=== PATIENT | female | born 1990 | race Caucasian/White ===

== ENCOUNTER 2018-02-15 05:59 | Day surgery (SDC) | payer BC ==
[2018-02-15 06:51] LABS: HEMATOCRIT 36.3 % (36.0-47.0); MEAN CORPUSCULAR HEMOGLOBIN 30.9 pg (27.0-33.0); MEAN CORPUSCULAR HGB CONC 35.8 g/dl (32.0-36.5); MEAN CORPUSCULAR VOLUME 86.2 fl (80.0-96.0); PLATELET COUNT, AUTOMATED 227 10^3/uL (150-450); RED BLOOD COUNT 4.21 10^6/uL (4.00-5.40); RED CELL DISTRIBUTION WIDTH 12.3 % (11.5-14.5); WHITE BLOOD COUNT 5.8 10^3/uL (4.0-10.0)
[2018-02-15] MEDS: LR 1,000 ML IV (06:54)
[2018-02-15 06:58] LABS: CONTROL LINE HCG INT CTR LINE PRESENT; HCG, SERUM QUALITATIVE NEGATIVE (NEGATIVE)
[2018-02-15] MEDS ORDERED: ONDANSETRON 4MG/2ML VIAL (J2405) As Ordered (07:12)
[2018-02-15] MEDS ORDERED: MIDAZOLAM INJ 2 MG/2 ML VIAL (J2250) As Ordered (07:12)
[2018-02-15] MEDS ORDERED: METOCLOPRAMIDE INJ 10MG/2ML VIAL (J2765) As Ordered (07:12)
[2018-02-15] MEDS ORDERED: LIDOCAINE 2% INJ 100 MG/5 ML SDV (FOR ANES.) As Ordered (07:12)
[2018-02-15] MEDS ORDERED: fentaNYL 100 MCG/2 ML INJECTION (J3010) As Ordered (07:12)
[2018-02-15] MEDS ORDERED: PROPOFOL 200 MG/20 ML VIAL As Ordered (07:12)
[2018-02-15] MEDS ORDERED: ROCURONIUM BROMIDE 50 MG/5 ML VIAL As Ordered (07:45)
[2018-02-15] MEDS ORDERED: KETOROLAC 60 MG/2 ML VIAL (J1885) As Ordered (07:45)
[2018-02-15] MEDS ORDERED: dexameTHASONE 4 MG/ML 1ML VIAL (J1100) As Ordered (07:45)
[2018-02-15] MEDS: BUPIVACAINE HCL 0.25% 30 ML VIAL As Ordered (07:55)
[2018-02-15] MEDS: METHYLENE BLUE 0.5% (5MG/ML) 10 ML AMP (PROVAYBLUE)(Q9968 PER 1MG) As Ordered (08:32)
[2018-02-15] MEDS ORDERED: HYDROmorphone HCL 2 MG/ML 1ML VIAL (J1170) As Ordered (08:59)
[2018-02-15] MEDS ORDERED: ONDANSETRON 4MG/2ML VIAL (J2405) IV (09:45)
[2018-02-15] MEDS ORDERED: LR 1,000 ML IV ×2 (09:45)
[2018-02-15] MEDS ORDERED: fentaNYL 100 MCG/2 ML INJECTION (J3010) IV (09:45)
[2018-02-15] MEDS ORDERED: HYDROMORPHONE HCL 0.5 MG/ 0.5 ML SYRINGE (J1170 PER 1) IV (09:45)
[2018-02-15] MEDS ORDERED: PERCOCET 5MG/325MG TAB PO (09:45)
== END 2018-02-15 11:05 | disposition home or self-care (01) ==
LOC: M SDC 05:59
DX: N97.1 Female infertility of tubal origin (principal); N83.8 Other noninflammatory disorders of ovary, fallopian tube and broad ligament; R00.8 Other abnormalities of heart beat; K21.9 Gastro-esophageal reflux disease without esophagitis; R51 Headache
CPT/HCPCS: 49321

== ENCOUNTER → 2018-10-21 | Outpatient (REF) | payer BC ==
[~2018-10-21] MED LIST: CALCTAB7 PO; PREN27TA3 PO; VITA100067 PO
== END ==
LOC: M LAB REF 17:18
PROVIDERS: ATTEND Family Medicine
DX: R30.0 Dysuria (principal)

== ENCOUNTER → 2019-07-05 | Outpatient (REF) | payer BC ==
[2019-07-05 15:06] LABS: AMORPHOUS SEDIMENT SMALL (NEGATIVE); APPEARANCE, URINE HAZY (CLEAR); BACTERIA, URINE AUTO 2+ (NEGATIVE); BILIRUBIN, URINE AUTO NEGATIVE (NEGATIVE); BLOOD, URINE BLOOD 3+ (NEGATIVE); COLOR, URINE YELLOW (YELLOW); GLUCOSE, URINE (UA) AUTO NEGATIVE (NEGATIVE); KETONE, URINE AUTO NEGATIVE (NEGATIVE); LEUKOCYTE ESTERASE, URINE AUTO 3+ (NEGATIVE); MUCUS, URINE SMALL (NEGATIVE); NITRITE, URINE AUTO POSITIVE (NEGATIVE); PROTEIN, URINE AUTO NEGATIVE (NEGATIVE); RBC, URINE AUTO 81 /HPF (0-3); SQUAMOUS EPITHELIAL CELL UR AU 0 /HPF (0-6); UROBILINOGEN, URINE AUTO 0.2 mg/dL (0.0-2.0); WBC, URINE AUTO 153 /HPF (0-3)
== END ==
LOC: M LAB REF 09:14
PROVIDERS: ATTEND Physician Assistant Medical
DX: N39.0 Urinary tract infection, site not specified (principal)

== ENCOUNTER → 2019-10-09 | Outpatient (REF) | payer BC | LOC: M LAB REF 18:19 | PROVIDERS: ATTEND Physician Assistant | DX: R30.0 Dysuria (principal) ==

== ENCOUNTER → 2021-04-22 | Outpatient (REF) | payer BC ==
[~2021-04-22] MED LIST changes: +CALC-211 PO; -CALCTAB7 PO
== END ==
LOC: M PLALAB 09:51
PROVIDERS: ATTEND Obstetrics & Gynecology
DX: Z34.91 Encounter for supervision of normal pregnancy, unspecified, first trimester (principal); Z3A.10 10 weeks gestation of pregnancy; Z53.9 Procedure and treatment not carried out, unspecified reason

== ENCOUNTER → 2021-04-22 | Outpatient (CLI) | payer BC ==
[2021-04-22 13:29] LABS: HEMOGLOBIN 12.4 g/dl (12.0-15.5); MEAN CORPUSCULAR HEMOGLOBIN 30.5 pg (27.0-33.0); MEAN CORPUSCULAR HGB CONC 34.4 g/dl (32.0-36.5); MEAN CORPUSCULAR VOLUME 88.5 fl (80.0-96.0); PLATELET COUNT, AUTOMATED 242 10^3/uL (150-450); RED BLOOD COUNT 4.07 10^6/uL (4.00-5.40); WHITE BLOOD COUNT 6.4 10^3/uL (4.0-10.0)
[2021-04-22 13:53] LABS: FREE T4 1.15 NG/DL (0.76-1.46); GLUCOSE CHALLENGE TEST 1 HOUR 72 MG/DL (LESS THAN 140); THYROID STIMULATING HORMONE 0.675 uIU/ML (0.358-3.740)
[2021-04-22 13:57] LABS: HEMOGLOBIN A1c 5.4 %
[2021-04-22 14:36] LABS: HEPATITIS C VIRUS ABY INDEX 0.1 INDEX (<0.8); HIV 1&2 SCREEN CENTAUR NEGATIVE (NEGATIVE)
[2021-04-22 14:49] LABS: GC DNA AMPLIFICATION NEGATIVE (NEGATIVE)
== END ==
LOC: M PLALAB 10:53
PROVIDERS: ATTEND Obstetrics & Gynecology
DX: Z34.81 Encounter for supervision of other normal pregnancy, first trimester (principal); Z3A.10 10 weeks gestation of pregnancy

== ENCOUNTER → 2021-05-02 | Outpatient (CLI) | payer BC ==
--- NOTE | 2021-05-02 16:31 | REP ---
INDICATION: SPOTTING AFFECTING COMPARISON: None. TECHNIQUE: Transabdominal and transvaginal 1st trimester obstetrical ultrasound with color Doppler evaluation. FINDINGS: Single live early intrauterine is appreciated. [place]-rump length of 6.6 cm corresponds to 12 weeks 6 days gestational age with estimated date of delivery 11/08/2021. heart rate equals 161 beats per minute. Posterior grade 0 placenta with evidence for placenta previa likely to resolve as progresses. Cervix measures approximately 3.6 cm in length and appears closed. Maternal ovaries are normal. IMPRESSION: Single live early intrauterine at 12 weeks 6 days gestational age. Complete anatomical assessment should be performed and 19-20 weeks. Placenta previa likely due to early . <Electronically signed by Ternece Hernandez > 05/02/21 [id number]
== END ==
LOC: M WHC 15:17
PROVIDERS: ATTEND Advanced Practice Midwife
DX: O26.851 Spotting complicating pregnancy, first trimester (principal); Z3A.12 12 weeks gestation of pregnancy

== ENCOUNTER → 2021-07-01 | Outpatient (CLI) | payer BC ==
--- NOTE | 2021-07-03 06:50 | REP ---
INDICATION: ANATOMY COMPARISON: 05/02/2021 TECHNIQUE: Transabdominal obstetrical ultrasound with color Doppler evaluation. FINDINGS: Examination demonstrates a single live intrauterine in variable presentation. motion is identified by technologist. Placenta is noted anterior and grade 1 without evidence for placenta previa or abruption. Amniotic fluid volume is normal. Cervix measures 5.2 cm in length and appears closed.. Selected gestational age: 20 weeks 5 days with REN 11/13/2021. Gestational age by current measurements 21 weeks 3 days with REN is 11/08/2021. FHR equals 143 beats per minute. BPD: 5.2 cm at 21 weeks 5 days HC: 19.3 cm at 21 weeks 4 days AC: 16.1 cm at 21 weeks 2 days FL: 3.6 cm at 21 weeks 2 days HL: 3.4 cm at 21 weeks 4 days HC/AC: 1.19 Estimated weight 414 grams (77thpercentile). Anatomical assessment demonstrates normal structures including cranium, choroid plexus, cavum, cerebellum/posterior fossa, lungs, four-chamber heart, diaphragm, stomach, cord insertion/three-vessel cord, kidneys/bladder, and extremities. Limited evaluation of the facial features, facial profile, cardiac ventricular outflow tracts and spine due to positioning. IMPRESSION: Single live intrauterine in variable presentation demonstrating appropriate estimated weight. Anatomical limitations as noted above may warrant follow-up. <Electronically signed by Terence Hernandez > 07/03/21 [id number]
== END ==
LOC: M WHC 08:14
PROVIDERS: ATTEND Specialist
DX: Z34.02 Encounter for supervision of normal first pregnancy, second trimester (principal); Z3A.21 21 weeks gestation of pregnancy

== ENCOUNTER → 2021-08-08 | Outpatient (CLI) | payer BC ==
[~2021-08-08] MED LIST changes: +LEVO25TA5 PO
== END ==
LOC: M WHC 07:03
PROVIDERS: ATTEND Obstetrics & Gynecology
DX: O09.812 Supervision of pregnancy resulting from assisted reproductive technology, second trimester (principal); Z3A.27 27 weeks gestation of pregnancy

== ENCOUNTER → 2021-08-19 | Outpatient (CLI) | payer BC ==
[~2021-08-19] MED LIST changes: -LEVO25TA5 PO
[2021-08-19 10:48] LABS: HEMATOCRIT 34.1 % (36.0-47.0); HEMOGLOBIN 11.5 g/dl (12.0-15.5); MEAN CORPUSCULAR HEMOGLOBIN 30.4 pg (27.0-33.0); MEAN CORPUSCULAR HGB CONC 33.7 g/dl (32.0-36.5); MEAN CORPUSCULAR VOLUME 90.2 fl (80.0-96.0); PLATELET COUNT, AUTOMATED 229 10^3/uL (150-450); RED BLOOD COUNT 3.78 10^6/uL (4.00-5.40); WHITE BLOOD COUNT 8.4 10^3/uL (4.0-10.0)
== END ==
LOC: M PLALAB 07:34
PROVIDERS: ATTEND Obstetrics & Gynecology
DX: O09.812 Supervision of pregnancy resulting from assisted reproductive technology, second trimester (principal); Z3A.00 Weeks of gestation of pregnancy not specified

== ENCOUNTER → 2021-08-25 | Outpatient (CLI) | payer BC | LOC: M LAB 07:10 | PROVIDERS: ATTEND Obstetrics & Gynecology | DX: R73.09 Other abnormal glucose (principal) ==

== ENCOUNTER → 2021-10-17 | Outpatient (REF) | payer BC | LOC: M SFHCWAGY 12:57 | PROVIDERS: ATTEND Obstetrics & Gynecology | DX: Z34.93 Encounter for supervision of normal pregnancy, unspecified, third trimester (principal); Z3A.36 36 weeks gestation of pregnancy ==

== ENCOUNTER → 2021-10-17 | Outpatient (REF) | payer BC | LOC: M PLALAB 10:05 | PROVIDERS: ATTEND Obstetrics & Gynecology | DX: Z34.93 Encounter for supervision of normal pregnancy, unspecified, third trimester (principal); Z3A.36 36 weeks gestation of pregnancy; Z53.9 Procedure and treatment not carried out, unspecified reason ==

== ENCOUNTER → 2021-10-24 | Outpatient (CLI) | payer BC | LOC: M WHC 10:22 | PROVIDERS: ATTEND Advanced Practice Midwife | DX: O24.410 Gestational diabetes mellitus in pregnancy, diet controlled (principal); Z3A.37 37 weeks gestation of pregnancy ==

== ENCOUNTER 2021-11-06 07:57 | Inpatient (IN) | payer BC ==
[2021-11-06] VITALS (11 sets, daily range): BP systolic 117–140; BP diastolic 62–82
[~2021-11-06] VITALS: Ht 154.9 cm; Wt 85.2 kg
[2021-11-06] MEDS ORDERED: LACTATED RINGER'S 1000 ML IV STA (10:19)
[2021-11-06] MEDS ORDERED: LIDOCAINE 1% MDV 20ML VIAL INFIL PRN (10:20)
[2021-11-06] MEDS ORDERED: OXYTOCIN DRIP 30 UNITS in IV 1 EA IV PRN (10:20)
[2021-11-06] MEDS ORDERED: TRANEXAMIC ACID INJection 1,000 MG in NS 100 ML IV PRN (10:20)
[2021-11-06] MEDS ORDERED: METHYLERGONOVINE MALEATE 0.2 MG/ML VIAL (J2210) IM PRN (10:20)
[2021-11-06] MEDS ORDERED: CARBOPROST TROMETHAMINE 250 MCG/ML AMP IM PRN (10:20)
[2021-11-06 10:50] LABS: HEMATOCRIT 34.8 % (36.0-47.0); HEMOGLOBIN 12.3 g/dl (12.0-15.5); MEAN CORPUSCULAR HEMOGLOBIN 30.8 pg (27.0-33.0); MEAN CORPUSCULAR HGB CONC 35.3 g/dl (32.0-36.5); PLATELET COUNT, AUTOMATED 225 10^3/uL (150-450); WHITE BLOOD COUNT 8.4 10^3/uL (4.0-10.0)
[2021-11-06] MEDS: miSOPROStol 50MCG 1/2 TABLET SL SCH ×2 (10:50→14:56)
[2021-11-06] MEDS ORDERED: LEVO25TA5 PO (15:18)
[2021-11-06] MEDS ORDERED: HOME MED LIST COMPLETE! XX SCH (15:20)
[2021-11-06] MEDS ORDERED: OXYTOCIN DRIP 30 UNITS in IV 1 EA IV SCH (20:05)
[2021-11-06] MEDS: LR 1,000 ML IV SCH (20:24)
[2021-11-07] VITALS (56 sets, daily range): BP systolic 112–150; BP diastolic 57–104
[2021-11-07] MEDS: LR 1,000 ML IV SCH ×2 (02:16→07:30)
[2021-11-07] MEDS ORDERED: FENTANYL 2MCG/ML ROPIVACAINE 0.2% IN 0.9% NACL 100ML IVBAG As Ordered ONE (07:19)
[2021-11-07] MEDS ORDERED: EPIDURAL COMMENT XX SCH (07:23)
[2021-11-07] MEDS ORDERED: diphenhydrAMINE 50MG/ML VIAL (J1200) IV PRN (07:23)
[2021-11-07] MEDS ORDERED: ePHEDrine SULFATE 25 MG/5 ML(5MG/ML) SYRINGE IV PRN (07:23)
[2021-11-07] MEDS ORDERED: NALOXONE INJ 0.4MG/1ML VIAL (J2310 PER 1MG) IV PRN (07:23)
[2021-11-07] MEDS ORDERED: EPIDURAL/PCA KEYS XX PRN (07:23)
[2021-11-07] MEDS ORDERED: LACTATED RINGER'S 1000 ML IV PRN (07:23)
[2021-11-07] MEDS ORDERED: FENTANYL/ROPIVACAINE/NACL BAG 100 ML EPIDURAL SCH (07:23)
[2021-11-07] MEDS ORDERED: ONDANSETRON 4MG/2ML VIAL IV PRN (07:23)
[2021-11-07] MEDS ORDERED: REFRIGERATOR IV KEYS XX PRN (07:23)
[2021-11-07] MEDS ORDERED: ANUSOL HC CREAM 30GM TOP PRN (13:10)
[2021-11-07] MEDS ORDERED: DIBUCAINE 1% OINTMENT 30GM TOP PRN (13:10)
[2021-11-07] MEDS ORDERED: METHYLERGONOVINE MALEATE 0.2 MG TAB PO PRN (13:10)
[2021-11-07] MEDS ORDERED: ACETAMINOPHEN TAB 650MG DOSE (2X325MG) PO PRN (13:10)
[2021-11-07] MEDS ORDERED: RHOGAM 300 MCG (1500 IU) INJ (J2790) IM SCH (13:10)
[2021-11-07] MEDS ORDERED: MEASLES,MUMPS,RUBELLA VACCINE INJ (MMR-II) (90707) SC SCH (13:10)
[2021-11-07] MEDS ORDERED: DOCUSATE SODIUM 100MG CAPSULE PO PRN (13:10)
[2021-11-07] MEDS ORDERED: MOM 30ML SUSPENSION UDC PO PRN (13:10)
[2021-11-07] MEDS ORDERED: IBUPROFEN 800 MG TAB PO PRN (13:10)
[2021-11-07] MEDS: ACETAMINOPHEN 500 MG TAB PO PRN (20:37)
[2021-11-08 06:00] VITALS: BP 125/80
[2021-11-08] MEDS: IBUPROFEN 600MG TAB PO PRN (08:05)
[2021-11-08] MEDS: PRENATAL VITAMINS CHEWABLE TABLET PO SCH (08:05)
[2021-11-08] MEDS ORDERED: medroxyPROGESTERone ACET IM SUSP 150 MG/ML VIAL (J1050) IM ONE (10:10)
[2021-11-08 18:00] VITALS: BP 136/84
[2021-11-08] MEDS: ACETAMINOPHEN 500 MG TAB PO PRN (21:51)
[2021-11-08 22:13] VITALS: BP 139/79
[2021-11-09 02:42] VITALS: BP 130/79
[2021-11-09 05:28] VITALS: BP 118/64
[2021-11-09] MEDS: PRENATAL VITAMINS CHEWABLE TABLET PO SCH (08:14)
[2021-11-09] MEDS: IBUPROFEN 600MG TAB PO PRN (08:14)
[2021-11-09] MEDS ORDERED: medroxyPROGESTERone ACET IM SUSP 150 MG/ML VIAL (J1050) IM ONE (09:00)
== END 2021-11-09 12:40 | disposition home or self-care (01) | DRG 560 ==
LOC: M LDI 07:57 → M OBS 11-07 14:50
PROVIDERS: ADMIT Obstetrics & Gynecology; ATTEND Obstetrics & Gynecology
PROC: 3E033VJ Introduction of Other Hormone into Peripheral Vein, Percutaneous Approach (ICD-10-PCS; 2021-11-06)
PROC: 3E0DXGC Introduction of Other Therapeutic Substance into Mouth and Pharynx, External Approach (ICD-10-PCS; 2021-11-06)
PROC: 10E0XZZ Delivery of Products of Conception, External Approach (ICD-10-PCS; principal; 2021-11-07)
PROC: 0HQ9XZZ Repair Perineum Skin, External Approach (ICD-10-PCS; 2021-11-07)
DX: O24.420 Gestational diabetes mellitus in childbirth, diet controlled (principal); E03.9 Hypothyroidism, unspecified; Z37.0 Single live birth; Z3A.39 39 weeks gestation of pregnancy; O99.284 Endocrine, nutritional and metabolic diseases complicating childbirth; O09.819 Supervision of pregnancy resulting from assisted reproductive technology, unspecified trimester; O70.0 First degree perineal laceration during delivery

== ENCOUNTER → 2022-04-26 | Outpatient (CLI) | payer BC ==
[~2022-04-26] MED LIST changes: +LEVO25TA5 PO
== END ==
LOC: M PLALAB 12:13
PROVIDERS: ATTEND Advanced Practice Midwife
DX: N91.2 Amenorrhea, unspecified (principal)

== ENCOUNTER → 2022-05-25 | Outpatient (REF) | payer BC | LOC: M PLALAB 11:55 | PROVIDERS: ATTEND Advanced Practice Midwife | DX: Z12.4 Encounter for screening for malignant neoplasm of cervix (principal) | CPT/HCPCS: 87624; G0123 ==

== ENCOUNTER → 2022-07-21 | Outpatient (CLI) | payer BC | LOC: M PLARAD 08:26 | PROVIDERS: ATTEND Family Medicine | DX: G43.109 Migraine with aura, not intractable, without status migrainosus (principal) ==

== ENCOUNTER → 2023-03-15 | Outpatient (CLI) | payer BC ==
[2023-03-15 11:41] LABS: HEMOGLOBIN A1c 4.9 % (4.0-6.0)
== END ==
LOC: M PLALAB 08:04
PROVIDERS: ATTEND Advanced Practice Midwife
DX: Z86.32 Personal history of gestational diabetes (principal)

== ENCOUNTER → 2023-03-15 | Outpatient (CLI) | payer BC ==
[2023-03-15 10:49] LABS: BASO % 0.5 % (0.0-1.0); EOS # 0.1 10^3/uL (0.0-0.5); HEMATOCRIT 41.4 % (36.0-47.0); HEMOGLOBIN 14.1 g/dl (12.0-15.5); LYMPH # 1.4 10^3/uL (1.5-5.0); LYMPH % 21.1 % (24.0-44.0); MEAN CORPUSCULAR HEMOGLOBIN 31.3 pg (27.0-33.0); MEAN CORPUSCULAR HGB CONC 34.1 g/dl (32.0-36.5); MEAN CORPUSCULAR VOLUME 91.8 fl (80.0-96.0); MONO # 0.5 10^3/uL (0.0-0.8); MONO % 7.2 % (2.0-8.0); NEUTROPHILS # 4.5 10^3/uL (1.5-8.5); NEUTROPHILS % 68.9 % (36.0-66.0); PLATELET COUNT, AUTOMATED 239 10^3/uL (150-450); RED BLOOD COUNT 4.51 10^6/uL (4.00-5.40); WHITE BLOOD COUNT 6.5 10^3/uL (4.0-10.0)
[2023-03-15 10:57] LABS: ALBUMIN 3.8 G/DL (3.2-5.2); ALKALINE PHOSPHATASE 74 U/L (46-116); ALT/SGPT 20 U/L (7.0-40); AST/SGOT 8 U/L (<34); BILIRUBIN,TOTAL 0.6 MG/DL (0.3-1.2); BLOOD UREA NITROGEN 15 MG/DL (9-23); CALCIUM LEVEL 9.2 MG/DL (8.5-10.1); CARBON DIOXIDE LEVEL 28 MMOL/L (20-31); CHLORIDE LEVEL 104 MMOL/L (98-107); CREATININE FOR GFR 0.66 MG/DL (0.55-1.30); GLOMERULAR FILTRATION RATE > 60.0 (>60); GLUCOSE, FASTING 110 MG/DL (60-100); POTASSIUM SERUM 4.1 MMOL/L (3.5-5.1); SODIUM LEVEL 138 MMOL/L (136-145); TOTAL PROTEIN 6.3 G/DL (5.7-8.2)
[2023-03-15 10:58] LABS: FREE T4 0.99 NG/DL (0.89-1.76); THYROID STIMULATING HORMONE 1.654 uIU/ML (0.55-4.78); TOTAL 25(OH) VITAMIN D 27.8 NG/ML (20.0-100.0)
== END ==
LOC: M PLALAB 08:00
PROVIDERS: ATTEND Family Medicine
DX: Z00.00 Encounter for general adult medical examination without abnormal findings (principal); Z13.29 Encounter for screening for other suspected endocrine disorder; Z13.0 Encounter for screening for diseases of the blood and blood-forming organs and certain disorders involving the immune mechanism; E55.9 Vitamin D deficiency, unspecified

== ENCOUNTER → 2023-05-01 | Outpatient (CLI) | payer BC | LOC: M PLALAB 10:02 | PROVIDERS: ATTEND Advanced Practice Midwife | DX: Z84.81 Family history of carrier of genetic disease (principal) ==

== ENCOUNTER → 2023-08-06 | Outpatient (CLI) | payer BC | LOC: M LAB 09:37 → M RAD 09:37 | PROVIDERS: ATTEND Physician Assistant Medical | DX: Z53.9 Procedure and treatment not carried out, unspecified reason (principal) ==

== ENCOUNTER → 2023-08-06 | Outpatient (CLI) | payer BC ==
[~2023-08-06] MED LIST changes: +GLUCAGON INJ 1MG VIAL As Ordered ONE; +ISOVUE-370 76% 100ML VIAL As Ordered ONE; +NEULUMEX 0.1% SUSPENSION 450ML BOTTLE (FORMERLY VOLUMEN) As Ordered ONE
== END ==
LOC: M RAD 09:28
PROVIDERS: ATTEND Physician Assistant Medical
DX: Z15.09 Genetic susceptibility to other malignant neoplasm (principal)
CPT/HCPCS: 74177; J1610; Q9967

== ENCOUNTER → 2023-09-12 | Outpatient (REF) | payer BC ==
[~2023-09-12] MED LIST changes: -GLUCAGON INJ 1MG VIAL As Ordered ONE; -ISOVUE-370 76% 100ML VIAL As Ordered ONE; -NEULUMEX 0.1% SUSPENSION 450ML BOTTLE (FORMERLY VOLUMEN) As Ordered ONE; +VITA100093 PO
[2023-09-12 15:50] LABS: APPEARANCE, URINE CLEAR (CLEAR); BACTERIA, URINE AUTO NEGATIVE (NEGATIVE); BILIRUBIN, URINE AUTO NEGATIVE (NEGATIVE); BLOOD, URINE BLOOD NEGATIVE (NEGATIVE); COLOR, URINE YELLOW (YELLOW); GLUCOSE, URINE (UA) AUTO NEGATIVE (NEGATIVE); KETONE, URINE AUTO TRACE mg/dL (NEGATIVE); LEUKOCYTE ESTERASE, URINE AUTO NEGATIVE (NEGATIVE); NITRITE, URINE AUTO NEGATIVE (NEGATIVE); PROTEIN, URINE AUTO NEGATIVE (NEGATIVE); RBC, URINE AUTO 0 /HPF (0-3); SPECIFIC GRAVITY URINE AUTO 1.014 (1.002-1.035); SQUAMOUS EPITHELIAL CELL UR AU 1 /HPF (0-6); UROBILINOGEN, URINE AUTO 0.2 mg/dL (0.0-2.0); WBC, URINE AUTO 0 /HPF (0-3)
== END ==
LOC: M PLALAB 12:54
PROVIDERS: ATTEND Advanced Practice Midwife
DX: Z01.419 Encounter for gynecological examination (general) (routine) without abnormal findings (principal); Z12.4 Encounter for screening for malignant neoplasm of cervix

== ENCOUNTER 2023-09-24 10:56 | Day surgery (SDC) | payer BC ==
[~2023-09-24] VITALS: Ht 157.5 cm; Wt 83.9 kg
[~2023-09-24 10:56] MED LIST changes: +NS 1,000 ML IV ONE
[2023-09-24] MEDS ORDERED: fentaNYL 100 MCG/2 ML INJECTION As Ordered ONE (11:22)
[2023-09-24] MEDS ORDERED: propofoL 200 MG/20 ML VIAL As Ordered ONE ×2 (11:23→11:58)
[2023-09-24 12:16] VITALS: TEMP 98.1
[2023-09-24 12:40] VITALS: BP 142/88; O2SAT 99
== END 2023-09-24 12:45 | disposition home or self-care (01) ==
LOC: M OPP 10:56
PROVIDERS: ATTEND Internal Medicine Gastroenterology
DX: Z85.038 Personal history of other malignant neoplasm of large intestine (principal); Z80.0 Family history of malignant neoplasm of digestive organs; Z15.09 Genetic susceptibility to other malignant neoplasm; D12.4 Benign neoplasm of descending colon; K31.89 Other diseases of stomach and duodenum; Z91.030 Bee allergy status
CPT/HCPCS: 43239; 45385; 88305; J3010

== ENCOUNTER → 2024-02-28 | Outpatient (REF) | payer BC ==
[~2024-02-28] MED LIST changes: -NS 1,000 ML IV ONE
== END ==
LOC: M PLALAB 12:30
PROVIDERS: ATTEND Advanced Practice Midwife
DX: Z15.09 Genetic susceptibility to other malignant neoplasm (principal); N85.9 Noninflammatory disorder of uterus, unspecified

== ENCOUNTER 2024-08-25 06:04 | Day surgery (SDC) | payer BC ==
[~2024-08-25] VITALS: Ht 154.9 cm; Wt 88.2 kg
[2024-08-25 06:39] LABS: HEMATOCRIT 41.2 % (36.0-47.0); HEMOGLOBIN 14.7 g/dl (12.0-15.5); MEAN CORPUSCULAR HEMOGLOBIN 32.3 pg (27.0-33.0); MEAN CORPUSCULAR HGB CONC 35.7 g/dl (32.0-36.5); MEAN CORPUSCULAR VOLUME 90.5 fl (80.0-96.0); PLATELET COUNT, AUTOMATED 220 10^3/uL (150-450); RED BLOOD COUNT 4.55 10^6/uL (4.00-5.40); WHITE BLOOD COUNT 5.7 10^3/uL (4.0-10.0)
[2024-08-25] MEDS ORDERED: PHEN-501 PO (06:50)
[2024-08-25] MEDS ORDERED: ROCURONIUM BROMIDE 50MG/5ML VIAL As Ordered ONE (06:52)
[2024-08-25] MEDS ORDERED: propofoL 200 MG/20 ML VIAL As Ordered ONE (06:52)
[2024-08-25] MEDS ORDERED: LIDOCAINE 2% 100MG/5ML SDV (FOR ANES.) As Ordered ONE (06:53)
[2024-08-25] MEDS ORDERED: fentaNYL 100 MCG/2 ML INJECTION As Ordered ONE (06:54)
[2024-08-25] MEDS ORDERED: MIDAZOLAM INJ 2MG/2ML VIAL As Ordered ONE (06:54)
[2024-08-25] MEDS: metroNIDAZOLE 500 MG in IV 1 EA IV ONE (07:09)
[2024-08-25] MEDS: NS (Normal Saline) 0.9% 1,000 ML IV SCH (07:10)
[2024-08-25] MEDS ORDERED: ACETAMINOPHEN 1000MG/100ML IV BAG As Ordered ONE (07:41)
[2024-08-25] MEDS: CIPROFLOXACIN 400 MG in IV 1 EA IV ONE (07:55)
[2024-08-25] MEDS ORDERED: KETOROLAC 60MG 2ML VIAL As Ordered ONE (08:39)
[2024-08-25] MEDS ORDERED: ONDANSETRON 4MG 2ML VIAL As Ordered ONE (08:39)
[2024-08-25] MEDS ORDERED: SUGAMMADEX SODIUM 500 MG/5 ML VIAL (BRIDION) As Ordered ONE (08:39)
[2024-08-25] MEDS ORDERED: NS (Normal Saline) 0.9% 1,000 ML IV SCH (09:25)
[2024-08-25] MEDS ORDERED: ONDANSETRON 4MG 2ML VIAL IV PRN (09:25)
[2024-08-25] MEDS ORDERED: fentaNYL 100 MCG/2 ML INJECTION IV PRN (09:25)
[2024-08-25] MEDS ORDERED: HYDROMORPHONE HCL 0.5 MG/ 0.5 ML SYRINGE IV PRN (09:25)
[2024-08-25] MEDS: oxyCODONE 5MG TAB PO PRN (10:09)
[2024-08-25 11:30] VITALS: BP 125/74; TEMP 97; O2SAT 98
== END 2024-08-25 11:48 | disposition home or self-care (01) ==
LOC: M SDC 06:04
PROVIDERS: ATTEND Obstetrics & Gynecology
DX: N85.00 Endometrial hyperplasia, unspecified (principal); N83.12 Corpus luteum cyst of left ovary; N83.11 Corpus luteum cyst of right ovary; N83.02 Follicular cyst of left ovary; N83.01 Follicular cyst of right ovary; Z15.09 Genetic susceptibility to other malignant neoplasm; N97.9 Female infertility, unspecified; E03.9 Hypothyroidism, unspecified; Z79.890 Hormone replacement therapy; Z79.3 Long term (current) use of hormonal contraceptives; Z88.1 Allergy status to other antibiotic agents; Z91.030 Bee allergy status
CPT/HCPCS: 36415; 58571; 81025; 85027; 86850; 88307; J0131; J0665; J0744; J1100; J1836; J1885; J2250; J2405; J3010; S2900

== ENCOUNTER → 2024-12-04 | Outpatient (REF) | payer BC ==
[~2024-12-04] MED LIST changes: +PHEN-501 PO
[2024-12-04 18:50] LABS: APPEARANCE, URINE CLEAR (CLEAR); BACTERIA, URINE AUTO 1+ (NEGATIVE); BILIRUBIN, URINE AUTO NEGATIVE (NEGATIVE); BLOOD, URINE BLOOD NEGATIVE (NEGATIVE); COLOR, URINE STRAW (YELLOW); GLUCOSE, URINE (UA) AUTO NEGATIVE (NEGATIVE); KETONE, URINE AUTO NEGATIVE (NEGATIVE); LEUKOCYTE ESTERASE, URINE AUTO NEGATIVE (NEGATIVE); NITRITE, URINE AUTO NEGATIVE (NEGATIVE); PROTEIN, URINE AUTO NEGATIVE (NEGATIVE); RBC, URINE AUTO 0 /HPF (0-3); SPECIFIC GRAVITY URINE AUTO 1.008 (1.002-1.035); SQUAMOUS EPITHELIAL CELL UR AU 0 /HPF (0-6); UROBILINOGEN, URINE AUTO 0.2 mg/dL (0.0-2.0); WBC, URINE AUTO 0 /HPF (0-3)
== END ==
LOC: M SFHCWAGY 17:07
PROVIDERS: ATTEND Advanced Practice Midwife
DX: Z01.419 Encounter for gynecological examination (general) (routine) without abnormal findings (principal); Z15.09 Genetic susceptibility to other malignant neoplasm

== ENCOUNTER 2025-05-14 09:53 | Day surgery (SDC) | payer BC ==
[~2025-05-14] VITALS: Ht 154.9 cm; Wt 86.2 kg
[~2025-05-14 09:53] MED LIST changes: +ESTR1PAT25 TOP; +PROG1CAP8 PO
[2025-05-14] MEDS ORDERED: LIDOCAINE 2% 100 MG/5 ML SDV (FOR ANES.) As Ordered ONE (11:41)
[2025-05-14] MEDS ORDERED: GLYCOPYRROLATE INJ 0.2 MG/ML 2 ML VIAL As Ordered ONE (11:41)
[2025-05-14 12:55] VITALS: BP 158/98; TEMP 97.3; O2SAT 98
== END 2025-05-14 13:13 | disposition home or self-care (01) ==
LOC: M OPP 09:53
PROVIDERS: ATTEND Internal Medicine Gastroenterology
DX: K64.8 Other hemorrhoids (principal); Z85.038 Personal history of other malignant neoplasm of large intestine; Z15.09 Genetic susceptibility to other malignant neoplasm; K31.7 Polyp of stomach and duodenum; Z88.1 Allergy status to other antibiotic agents; Z91.030 Bee allergy status; Z79.899 Other long term (current) drug therapy
CPT/HCPCS: 43251; 45378; 88305; J1596; J3010

== ENCOUNTER 2025-05-16 15:21 | Emergency (ER) | payer BC ==
[~2025-05-16] VITALS: Ht 157.5 cm; Wt 88.5 kg
[2025-05-16 15:59] LABS: BASO # 0.0 10^3/uL (0.0-0.2); BASO % 0.4 % (0.0-1.0); EOS # 0.1 10^3/uL (0.0-0.5); EOS % 0.8 % (0.0-3.0); LYMPH # 1.5 10^3/uL (1.5-5.0); LYMPH % 20.1 % (24.0-44.0); MONO # 0.5 10^3/uL (0.0-0.8); MONO % 6.4 % (2.0-8.0); NEUTROPHILS # 5.4 10^3/uL (1.5-8.5); NEUTROPHILS % 72.0 % (36.0-66.0); PLATELET COUNT, AUTOMATED 234 10^3/uL (150-450)
[2025-05-16 16:01] LABS: PLATELET COUNT, AUTOMATED 233 10^3/uL (150-450)
[2025-05-16 16:26] LABS: ALT/SGPT 100 U/L (7.0-40); AST/SGOT 62 U/L (<34); CALCIUM LEVEL 9.7 MG/DL (8.5-10.1); CARBON DIOXIDE LEVEL 26 MMOL/L (20-31); CHLORIDE LEVEL 105 MMOL/L (98-107); CREATININE FOR GFR 0.63 MG/DL (0.55-1.30); GLOMERULAR FILTRATION RATE > 90.0 (>60); POTASSIUM SERUM 3.8 MMOL/L (3.5-5.1); SODIUM LEVEL 142 MMOL/L (136-145)
[2025-05-16 17:00] LABS: MAGNESIUM LEVEL 2.0 MG/DL (1.8-2.4)
[2025-05-16 17:13] LABS: APPEARANCE, URINE CLEAR (CLEAR); BACTERIA, URINE AUTO 1+ (NEGATIVE); BILIRUBIN, URINE AUTO NEGATIVE (NEGATIVE); BLOOD, URINE BLOOD NEGATIVE (NEGATIVE); GLUCOSE, URINE (UA) AUTO NEGATIVE (NEGATIVE); KETONE, URINE AUTO NEGATIVE (NEGATIVE); LEUKOCYTE ESTERASE, URINE AUTO NEGATIVE (NEGATIVE); NITRITE, URINE AUTO NEGATIVE (NEGATIVE); PROTEIN, URINE AUTO NEGATIVE (NEGATIVE); RBC, URINE AUTO 1 /HPF (0-3); SPECIFIC GRAVITY URINE AUTO 1.005 (1.002-1.035); SQUAMOUS EPITHELIAL CELL UR AU 0 /HPF (0-6); UROBILINOGEN, URINE AUTO 0.2 mg/dL (0.0-2.0); WBC, URINE AUTO 1 /HPF (0-3)
[2025-05-16] MEDS ORDERED: LOSA50TA28 PO (17:40)
[2025-05-16 17:53] VITALS: BP 152/90; O2SAT 98
[2025-05-16 17:54] VITALS: BP 152/90
[2025-05-16] MEDS: LOSARTAN 50 MG TABLET PO ONE (17:54)
[2025-05-16 17:55] VITALS: TEMP 98.8
== END 2025-05-16 18:07 | disposition home or self-care (01) ==
LOC: M ED 15:21
DX: I10 Essential (primary) hypertension (principal); T38.5X5A Adverse effect of other estrogens and progestogens, initial encounter; F10.10 Alcohol abuse, uncomplicated; Z91.030 Bee allergy status; Z88.1 Allergy status to other antibiotic agents; Z79.899 Other long term (current) drug therapy

== ENCOUNTER → 2025-06-19 | Outpatient (CLI) | payer BC ==
[~2025-06-19] MED LIST changes: +LOSA50TA28 PO
== END ==
LOC: M RAD 09:13
PROVIDERS: ATTEND Family Medicine
DX: Z53.9 Procedure and treatment not carried out, unspecified reason (principal)

== ENCOUNTER → 2025-06-25 | Outpatient (CLI) | payer BC | LOC: M RAD 08:26 | PROVIDERS: ATTEND Family Medicine | DX: I10 Essential (primary) hypertension (principal) ==